=== PATIENT | male | born 1970 | race African-American/Black ===

== ENCOUNTER 2016-05-17 18:40 | Emergency (ER) | payer OTHER ==
--- NOTE | 2016-05-17 20:15 | DIAGNOSTIC IMAGING REPORT ---
PROCEDURE: CT HEAD WITHOUT CONTRAST INDICATION: NUMBNESS TECHNIQUE: Noncontrast axial images with sagittal and coronal reformations. COMPARISON: None. FINDINGS: Sulci, ventricular system, and brain parenchyma are normal. No evidence of acute intracranial process. Mild maxillary sinus disease. Mastoid are clear. IMPRESSION: 1. Negative non-enhanced head CT. 2. Findings discussed with Cathy Coe at 08:10 p.m.[facility] Time
--- NOTE | 2016-05-17 20:15 | DIAGNOSTIC IMAGING REPORT ---
PROCEDURE: CT HEAD WITHOUT CONTRAST INDICATION: NUMBNESS TECHNIQUE: Noncontrast axial images with sagittal and coronal reformations. COMPARISON: None. FINDINGS: Sulci, ventricular system, and brain parenchyma are normal. No evidence of acute intracranial process. Mild maxillary sinus disease. Mastoid are clear. IMPRESSION: 1. Negative non-enhanced head CT. 2. Findings discussed with Cathy Coe at 08:10 p.m.[facility] Time
--- NOTE | 2016-05-17 20:19 | DIAGNOSTIC IMAGING REPORT ---
PROCEDURE: XR CERVICAL SPINE 2 OR 3 VIEW INDICATION: NUMBNESS TECHNIQUE: Three views. COMPARISON: None. FINDINGS: Normal alignment without fracture. Straightening of the cervical spine. Moderate C4-5 and C5-6 degenerative changes. Odontoid, lateral masses of C1 and prevertebral soft tissues are normal. IMPRESSION: 1. Degenerative changes 2. Loss of lordosis suggestive of muscular spasm
--- NOTE | 2016-05-17 20:20 | DIAGNOSTIC IMAGING REPORT ---
PROCEDURE: XR CHEST 1 VIEW INDICATION: CHEST NUMBNESS, initial encounter TECHNIQUE: Portable AP view 08:11 p.m. COMPARISON: None. FINDINGS: Right apical scar Heart and mediastinum are normal. Thorax is normal. IMPRESSION: 1. No acute changes
--- NOTE | 2016-05-17 23:19 | ED NURSING NOTES ---
Clinical Report - Nurses [facility] [address] [place] [address] 05/17/2016 18:42 Patient: RAYSA GARCIA TRIAGE Triage time 1939. Acuity: LEVEL 3. Chief Complaint: NUMBNESS. Alert. No acute distress. --19:51 Kathy Holloway 19:46 05/17/16. BP: 136/97. HR: 70. RR: 16. O2 saturation: 98%. Temp: 98.0 F. Pain level now 08/22. --19:51 Kathy Holloway. Weight: 83.9 kg. Height/Length: 72 inches. BMI: 25.1. --19:45 Kathy Holloway. Medications Lipitor Oral. --19:49 Kathy Holloway Aspir-81 Oral. --19:49 Kathy Holloway. Allergies No Known Drug Allergy. --19:50 Kathy Holloway. History Arrived by private vehicle. Historian: patient. This started 4 days ago. ( Pt sts he has been having constant left sided numbness with tingling to left chest shoulder and down arm, also with some episodes of chest tightness on the left, pt sts in 2011 he had his entire left side do this, he was admitted and evaluated by neurology and noting was found, pt sts he is here tonight because "it has never lasted this long before"). He has had numbness. SOCIAL HX: Never smoker. --19:51 Kathy Holloway. PROBLEMS: Cervical Strain. Hypercholesterolemia. --19:49 Kathy Holloway. Interventions ID band on patient. To treatment room. --19:51 Kathy Holloway. PHYSICAL ASSESSMENT Ambulatory to room. Baseline functional status: usually alert, oriented x4 and cooperative. Verbal response: usually clear. Motor response: usually steady gait and moves all extremities equally GENERAL / NEURO / PSYCH: Awake. Oriented X 4. Alert. Appears in no acute distress. Speech normal. Mood/affect normal. Moves all extremities. No motor deficit. He has had numbness. Sensory deficit noted. Sensory deficit present. HEENT: No facial asymmetry noted. Pupils equal, round and reactive to light. EOM intact. Pharynx within normal limits. RESPIRATORY: Breath sounds within normal limits. Respirations not labored. CVS: Normal sinus rhythm noted. Capillary refill less than 2 seconds. SKIN: Skin is intact and warm. --19:52 Kathy Holloway. NURSING PROGRESS NOTES 20:03 05/17/2016 Site #1 started via IV in the right antecubital space with an 20g angiocath, with aseptic technique and good blood return; one attempt. Blood drawn: rainbow set. Labeled in the presence of the patient and sent to the lab. Saline lock flushed with 10 mL saline. --20:03 Kathy Holloway 20:21. EKG was performed by a tech. --20:21 McQuoid, Jaclyn, ER Tech1 The patient reports no complaints and he is calm and resting quietly. --22:00 Kathy Holloway 21:59 05/17/16. BP: 130/80. HR: 68. RR: 16. O2 saturation: 99%. Pain level now 4/10. --22:00 Kathy Holloway EKG time: (2310 PM). EKG was ordered, performed by a tech and shown to the ED physician. --23:09 Sobia Joshi 23:13 05/17/16. BP: 132/81. HR: 72. RR: 18. O2 saturation: 98%. Pain level now 2/10. --23:13 Kathy Holloway Patient informed about reason for wait. Patient waiting for consult. --23:13 Kathy Holloway. DISPOSITION / DISCHARGE 23:33 05/17/2016 Site #1 removed upon discharge. Pressure dressing applied. --23:33 Kathy Holloway Departure time: 2334. Condition at departure: unchanged and stable. No learning barriers present. Discharge instructions provided and reviewed with the patient. Patient verbalized understanding. Written instructions provided in [place]. The patient was discharged by the nurse practitioner. He was discharged home. He left the Emergency Department ambulatory and via private vehicle. Patient driving. --23:34 Kathy Holloway. Locked/Released at 05/17/2016 23:34 by Kathy Holloway,
--- NOTE | 2016-05-17 23:19 | ED CLINICAL REPORT ---
Clinical Report - Physicians/Mid Levels [facility] [address] [place] [address] 05/17/2016 18:42 Patient: RAYSA GARCIA Time Seen: 19:43; initial patient contact, initial documentation, patient care assumed. Arrived- By private vehicle. Historian- patient. HISTORY OF PRESENT ILLNESS Chief Complaint: PARESTHESIA. The patient has had localized numbness of the left arm (mild), (L side of chest and neck). No tingling, impaired speech or swallowing or visual disturbance. No difficulty walking. This started about 4 days ago and is still present. (none). No dizziness or altered mental status. Usually is alert and oriented X3 and has normal mobility. Similar symptoms previously: Once, milder. 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 Recent medical care: Not recently seen/assessed. REVIEW OF SYSTEMS No fever, chest pain, difficulty breathing, cough or abdominal pain. No diarrhea or vomiting. All systems otherwise negative, except as recorded above. PAST HISTORY See nurses notes. ( PROBLEMS: Cervical Strain. Hypercholesterolemia. --19:49 Kathy Holloway.). SOCIAL HISTORY Never smoker. No alcohol use or drug use. No recent travel. Is a local resident. FAMILY HISTORY Negative. ADDITIONAL NOTES The nursing notes have been reviewed with agreement regarding the chief complaint, HPI, ROS, PMH and patient medications and allergies. PHYSICAL EXAM Vital Signs: 05/17/2016 19:46 BP: 136/97. HR: 70. RR: 16. O2 saturation: 98%. Temp: 98.0 F. Have been reviewed as abnormal and appear to be correct. Hypertensive. Heart rate normal. Respiratory rate normal. Temperature normal. Oxygen saturation normal. Appearance: Alert. No acute distress. Head: Head atraumatic. Eyes: Pupils equal, round and reactive to light. ENT: Normal ENT inspection. Airway intact. Pharynx normal. Neck: Normal inspection. Neck supple. CVS: Normal heart rate and rhythm. Heart sounds normal. Pulses normal. Respiratory: No respiratory distress. Breath sounds normal. Abdomen: Soft and nontender. No organomegaly. Back: Normal inspection. Skin: Skin warm and dry. Normal skin color. No rash. Normal skin turgor. Extremities: Extremities exhibit normal ROM. No lower extremity edema. Neuro: Alert. Oriented X 3. Mood/affect normal. Speech normal. Cranial nerves normal (as tested). No cerebellar findings. No motor deficit. No sensory deficit. LABS, X-RAYS, AND EKG EKG: EKG time: (2020). No acute process. No acute ischemia. Normal EKG. Rate: 62. Normal EKG. The study has been interpreted contemporaneously by me (and reviewed by dr wells). The EKG appears to be a good tracing. Interpretation time: 2020. EKG #2: Normal. EKG time: (2310). No acute process. No acute ischemia. Normal EKG. Rate: 68. X-Rays: C-spine series. The study has been interpreted contemporaneously by me (and Dr sheldon). The EKG appears to be a good tracing. Interpretation time: 2311. C-Spine X-rays: (IMPRESSION: 1. Degenerative changes 2. Loss of lordosis suggestive of muscular spasm Electronically Final signed by:Amauri Barney MD 05/17/2016 8:19:16 PM). The X-rays were interpreted by the radiologist and contemporaneously by me. Chest X-ray: Normal Chest X-Ray. (IMPRESSION: 1. No acute changes Electronically Final signed by:Amauri Barney MD 05/17/2016 8:19:58 PM). The X-rays were interpreted by the radiologist and contemporaneously by me. CT Head: No acute disease. (IMPRESSION: 1. Negative non-enhanced head CT. 2. Findings discussed with Cathy Coe at 08:10 p.m., [place] Standard Time Electronically Final signed by:Amauri Barney MD 05/17/2016 8:15:14 PM). The study was interpreted by the radiologist. Interpretation time: 20:29. Laboratory Tests: CBC w Diff: (GHASSAN: 05/17/2016 20:00) ( [facility] 05/17/2016 20:17) Final results Test Result Flag Units (Reference) WHITE BLOOD COUNT 6.0 K/uL (4.5-11.5) RED BLOOD COUNT 4.88 M/uL (4.50-5.90) HEMOGLOBIN 14.2 gm/dL (13.5-17.5) HEMATOCRIT 43.6 % (41.0-53.0) MEAN CELL VOLUME 89 fL (80-100) MEAN CORPUSCULAR HGB 29 pg (26-34) MEAN CORPUSCULAR HGB CONC 33 g/dL (31-37) RED CELL DISTRIBUTION WIDTH 13.3 % (11.6-14.8) PLATELET COUNT 315 K/uL (150-400) NEUTROPHIL % 54.3 % (50-75) LYMPH % 32.7 % (25-40) MONO % 9.2 % (3-14) EOSINOPHIL % 3.0 % (0-4) BASOPHIL % 0.8 % (0-2) CPK: (GHASSAN: 05/17/2016 21:58) ( [facility] 05/17/2016 22:38) Final results Test Result Flag Units (Reference) CPK 515 H U/L (24-260) TROPONIN I 0.09 ng/mL (0.00-1.5) TROPONIN REFERENCE RANGE:<0.1 NEGATIVE0.1-1.5 INDETERMINANT>1.5 POSITIVE CK-MB 4.4 H ng/mL (0.5-3.2) %CKMB 0.9 % (0.0-4.0) BMP: (GHASSAN: 05/17/2016 20:00) ( [facility] 05/17/2016 20:50) Final results Test Result Flag Units (Reference) GLUCOSE 84 mg/dL (70-110) BUN 9 mg/dL (7-18) CREATININE 1.0 mg/dL (0.6-1.3) Estimated GFR >60 mL/min Estimated GFR- >60 mL/min Note: Persistent reduction over 3 months in eGFR<60 mL/min/1.73 m2 defines CKD. Patients with eGFR values>=60 mL/min/1.73 m2 may also have CKD if evidence ofpersistent proteinuria. Additional information may be foundat www.kidney.org. SODIUM 143 mmol/L (136-145) POTASSIUM 3.9 mmol/L (3.5-5.1) CHLORIDE 106 mmol/L (98-107) CARBON DIOXIDE 32 mmol/L (21-32) CALCIUM 9.5 mg/dL (8.5-10.1) CPK 332 H U/L (24-260) CK-MB 2.4 ng/mL (0.5-3.2) %CKMB 0.7 % (0.0-4.0) TROPONIN I 0.09 ng/mL (0.00-1.5) TROPONIN REFERENCE RANGE:<0.1 NEGATIVE0.1-1.5 INDETERMINANT>1.5 POSITIVE . PROGRESS AND PROCEDURES Course of Care: 21:36 05/17/16. pt updated with current results from labs, ct, xrays, and aware of 2nd set of enzymes due at 2200, pt resting quietly, nad, and pleasant 22:46 05/17/16. Dr. Sheldon aware of pt labs and report given Pt aware that enzymes went up, and admit for obs is recommended having director hydrogen storage engineering page cardiology at [facility]. 05/17/2016 23:13 BP: 132/81. HR: 72. RR: 18. O2 saturation: 98%. Vital Signs: have been reviewed as normal and appear to be correct. Consult obtained from cardiology. call returned [phone] [employer] Libr[employer] at [facility], if no new ekg changes, ok to dc. Case discussed. Phone consult only. Agree with treatment plan. Patient counseled in person regarding the patient's stable condition, test results, diagnosis and need for follow-up. 23:15. Differential Diagnosis: Other possible considerations: tia, cva, cervical stenosis, nerve impingement syndrome, mi, angina. Above considerations are based on history, physical exam, laboratory data, X-Ray data, EKG and other information. Differential diagnosis was discussed with patient. Disposition: Discharged home in good and unchanged condition (23:19). Condition: good and stable. CLINICAL IMPRESSION Atypical chest pain .12 lead EKG performed. INSTRUCTIONS Warnings: Further evaluation is necessary in order to conduct further tests. It is very important to follow up with a physician. GENERAL WARNINGS: Return or contact your physician immediately if your condition worsens or changes unexpectedly, if not improving as expected, or if other problems arise. Specifically return if problem worsens. Follow-up: Follow up with your doctor in about two days. Call for an appointment. Summary of care provided to patient. Screening today revealed the patient's blood pressure to be in the hypertensive range. Blood pressure screening was not performed during this visit because blood pressure screening was precluded by clinical urgency. Understanding of the discharge instructions verbalized by patient. (Electronically signed by Cathy Coe A.R.N.P. 05/17/2016 23:36)
--- NOTE | 2016-05-17 23:19 | ED ORDER SUMMARY ---
..... Patient: RAYSA GARCIA OrderSheet [facility] VisitID: [id number] [address] [place] [address] 45y, M Registration Date/Time: 05/17/2016 ORDER SHEET Weight: 83.9 kg Allergies: No Known Drug Allergy GENERAL ORDERS: CBC w Diff Urgent (19:53 05/17/2016 EBonham per protocol) (Ack 19:59 NHouse ER Tech1) (20:42 NHouse ER Tech1) CMP Urgent (19:53 05/17/2016 EBonham per protocol) (19:54 HBivens A.R.N.P.) (Cancelled: Other19:54 HBivens A.R.N.P.) EKG - ER Stat (19:53 05/17/2016 EBonham per protocol) (Ack 19:54 AMcQuoid ER Tech1) (20:20 AMcQuoid ER Tech1) Chest 1V Urgent (19:55 05/17/2016 HBivens A.R.N.P.) (Ack 19:59 NHouse ER Tech1) (20:15 MCampbell) Cervical Spine 2 or 3V Urgent (19:55 05/17/2016 HBivens A.R.N.P.) (Ack 19:59 NHouse ER Tech1) (20:15 MCampbell) CT Head wo Cont Urgent (19:55 05/17/2016 HBivens A.R.N.P.) (Ack 19:59 NHouse ER Tech1) (20:15 MCampbell) BMP Urgent (19:55 05/17/2016 HBivens A.R.N.P.) (Ack 19:59 NHouse ER Tech1) (20:42 NHouse ER Tech1) CPK Urgent (19:55 05/17/2016 HBivens A.R.N.P.) (Ack 19:59 NHouse ER Tech1) (20:42 NHouse ER Tech1) Troponin-I Urgent (19:55 05/17/2016 HBivens A.R.N.P.) (Ack 19:59 NHouse ER Tech1) (20:42 NHouse ER Tech1) CPK Urgent (21:10 05/17/2016 HBivens A.R.N.P.) (Ack 21:22 NHouse ER Tech1) (22:20 NHouse ER Tech1) Troponin-I Urgent (21:10 05/17/2016 HBivens A.R.N.P.) (Ack 21:22 NHouse ER Tech1) (22:20 NHouse ER Tech1) EKG - ER Stat (22:46 05/17/2016 HBivens A.R.N.P.) (23:08 [facility] MEDICATION ORDERS: IV FLUIDS: IV Saline Lock (19:53 05/17/2016 Ami per protocol) (Cancelled: Duplicate Order20:03 Ami) IV Saline Lock (19:55 05/17/2016 HBivens A.R.N.P.) (20:03 Ami) ORDER SHEET NOTES: [Electronically signed by Kathy Holloway (23:34 05/17/2016)] [Electronically signed by Cathy Coe A.R.N.P. (23:36 05/17/2016)] [Electronically locked/signed by Kathy Holloway (23:34 05/17/2016)]
--- NOTE | 2016-05-17 23:19 | ED ORDER SUMMARY ---
..... Patient: RAYSA GARCIA OrderSheet [facility] VisitID: [id number] [address] [place] [address] 45y, M Registration Date/Time: 05/17/2016 ORDER SHEET Weight: 83.9 kg Allergies: No Known Drug Allergy GENERAL ORDERS: CBC w Diff Urgent (19:53 05/17/2016 EBonham per protocol) (Ack 19:59 NHouse ER Tech1) (20:42 NHouse ER Tech1) CMP Urgent (19:53 05/17/2016 EBonham per protocol) (19:54 HBivens A.R.N.P.) (Cancelled: Other19:54 HBivens A.R.N.P.) EKG - ER Stat (19:53 05/17/2016 EBonham per protocol) (Ack 19:54 AMcQuoid ER Tech1) (20:20 AMcQuoid ER Tech1) Chest 1V Urgent (19:55 05/17/2016 HBivens A.R.N.P.) (Ack 19:59 NHouse ER Tech1) (20:15 MCampbell) Cervical Spine 2 or 3V Urgent (19:55 05/17/2016 HBivens A.R.N.P.) (Ack 19:59 NHouse ER Tech1) (20:15 MCampbell) CT Head wo Cont Urgent (19:55 05/17/2016 HBivens A.R.N.P.) (Ack 19:59 NHouse ER Tech1) (20:15 MCampbell) BMP Urgent (19:55 05/17/2016 HBivens A.R.N.P.) (Ack 19:59 NHouse ER Tech1) (20:42 NHouse ER Tech1) CPK Urgent (19:55 05/17/2016 HBivens A.R.N.P.) (Ack 19:59 NHouse ER Tech1) (20:42 NHouse ER Tech1) Troponin-I Urgent (19:55 05/17/2016 HBivens A.R.N.P.) (Ack 19:59 NHouse ER Tech1) (20:42 NHouse ER Tech1) CPK Urgent (21:10 05/17/2016 HBivens A.R.N.P.) (Ack 21:22 NHouse ER Tech1) (22:20 NHouse ER Tech1) Troponin-I Urgent (21:10 05/17/2016 HBivens A.R.N.P.) (Ack 21:22 NHouse ER Tech1) (22:20 NHouse ER Tech1) EKG - ER Stat (22:46 05/17/2016 HBivens A.R.N.P.) (23:08 [facility] MEDICATION ORDERS: IV FLUIDS: IV Saline Lock (19:53 05/17/2016 Ami per protocol) (Cancelled: Duplicate Order20:03 Ami) IV Saline Lock (19:55 05/17/2016 HBivens A.R.N.P.) (20:03 Ami) ORDER SHEET NOTES: [Electronically signed by Kathy Holloway (23:34 05/17/2016)] [Electronically signed by Cathy Coe A.R.N.P. (23:36 05/17/2016)] [Electronically locked/signed by Kathy Holloway (23:34 05/17/2016)]
--- NOTE | 2016-05-17 23:19 | ED CLINICAL REPORT ---
Clinical Report - Physicians/Mid Levels [facility] [address] [place] [address] 05/17/2016 18:42 Patient: RAYSA GARCIA Time Seen: 19:43; initial patient contact, initial documentation, patient care assumed. Arrived- By private vehicle. Historian- patient. HISTORY OF PRESENT ILLNESS Chief Complaint: PARESTHESIA. The patient has had localized numbness of the left arm (mild), (L side of chest and neck). No tingling, impaired speech or swallowing or visual disturbance. No difficulty walking. This started about 4 days ago and is still present. (none). No dizziness or altered mental status. Usually is alert and oriented X3 and has normal mobility. Similar symptoms previously: Once, milder. 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 Recent medical care: Not recently seen/assessed. REVIEW OF SYSTEMS No fever, chest pain, difficulty breathing, cough or abdominal pain. No diarrhea or vomiting. All systems otherwise negative, except as recorded above. PAST HISTORY See nurses notes. ( PROBLEMS: Cervical Strain. Hypercholesterolemia. --19:49 Kathy Holloway.). SOCIAL HISTORY Never smoker. No alcohol use or drug use. No recent travel. Is a local resident. FAMILY HISTORY Negative. ADDITIONAL NOTES The nursing notes have been reviewed with agreement regarding the chief complaint, HPI, ROS, PMH and patient medications and allergies. PHYSICAL EXAM Vital Signs: 05/17/2016 19:46 BP: 136/97. HR: 70. RR: 16. O2 saturation: 98%. Temp: 98.0 F. Have been reviewed as abnormal and appear to be correct. Hypertensive. Heart rate normal. Respiratory rate normal. Temperature normal. Oxygen saturation normal. Appearance: Alert. No acute distress. Head: Head atraumatic. Eyes: Pupils equal, round and reactive to light. ENT: Normal ENT inspection. Airway intact. Pharynx normal. Neck: Normal inspection. Neck supple. CVS: Normal heart rate and rhythm. Heart sounds normal. Pulses normal. Respiratory: No respiratory distress. Breath sounds normal. Abdomen: Soft and nontender. No organomegaly. Back: Normal inspection. Skin: Skin warm and dry. Normal skin color. No rash. Normal skin turgor. Extremities: Extremities exhibit normal ROM. No lower extremity edema. Neuro: Alert. Oriented X 3. Mood/affect normal. Speech normal. Cranial nerves normal (as tested). No cerebellar findings. No motor deficit. No sensory deficit. LABS, X-RAYS, AND EKG EKG: EKG time: (2020). No acute process. No acute ischemia. Normal EKG. Rate: 62. Normal EKG. The study has been interpreted contemporaneously by me (and reviewed by dr wells). The EKG appears to be a good tracing. Interpretation time: 2020. EKG #2: Normal. EKG time: (2310). No acute process. No acute ischemia. Normal EKG. Rate: 68. X-Rays: C-spine series. The study has been interpreted contemporaneously by me (and Dr sheldon). The EKG appears to be a good tracing. Interpretation time: 2311. C-Spine X-rays: (IMPRESSION: 1. Degenerative changes 2. Loss of lordosis suggestive of muscular spasm Electronically Final signed by:Amauri Barney MD 05/17/2016 8:19:16 PM). The X-rays were interpreted by the radiologist and contemporaneously by me. Chest X-ray: Normal Chest X-Ray. (IMPRESSION: 1. No acute changes Electronically Final signed by:Amauri Barney MD 05/17/2016 8:19:58 PM). The X-rays were interpreted by the radiologist and contemporaneously by me. CT Head: No acute disease. (IMPRESSION: 1. Negative non-enhanced head CT. 2. Findings discussed with Cathy Coe at 08:10 p.m., [place] Standard Time Electronically Final signed by:Amauri Barney MD 05/17/2016 8:15:14 PM). The study was interpreted by the radiologist. Interpretation time: 20:29. Laboratory Tests: CBC w Diff: (GHASSAN: 05/17/2016 20:00) ( [facility] [place] 05/17/2016 20:17) Final results Test Result Flag Units (Reference) WHITE BLOOD COUNT 6.0 K/uL (4.5-11.5) RED BLOOD COUNT 4.88 M/uL (4.50-5.90) HEMOGLOBIN 14.2 gm/dL (13.5-17.5) HEMATOCRIT 43.6 % (41.0-53.0) MEAN CELL VOLUME 89 fL (80-100) MEAN CORPUSCULAR HGB 29 pg (26-34) MEAN CORPUSCULAR HGB CONC 33 g/dL (31-37) RED CELL DISTRIBUTION WIDTH 13.3 % (11.6-14.8) PLATELET COUNT 315 K/uL (150-400) NEUTROPHIL % 54.3 % (50-75) LYMPH % 32.7 % (25-40) MONO % 9.2 % (3-14) EOSINOPHIL % 3.0 % (0-4) BASOPHIL % 0.8 % (0-2) CPK: (GHASSAN: 05/17/2016 21:58) ( [facility] [place] 05/17/2016 22:38) Final results Test Result Flag Units (Reference) CPK 515 H U/L (24-260) TROPONIN I 0.09 ng/mL (0.00-1.5) TROPONIN REFERENCE RANGE:<0.1 NEGATIVE0.1-1.5 INDETERMINANT>1.5 POSITIVE CK-MB 4.4 H ng/mL (0.5-3.2) %CKMB 0.9 % (0.0-4.0) BMP: (GHASSAN: 05/17/2016 20:00) ( [facility] 05/17/2016 20:50) Final results Test Result Flag Units (Reference) GLUCOSE 84 mg/dL (70-110) BUN 9 mg/dL (7-18) CREATININE 1.0 mg/dL (0.6-1.3) Estimated GFR >60 mL/min Estimated GFR- >60 mL/min Note: Persistent reduction over 3 months in eGFR<60 mL/min/1.73 m2 defines CKD. Patients with eGFR values>=60 mL/min/1.73 m2 may also have CKD if evidence ofpersistent proteinuria. Additional information may be foundat www.kidney.org. SODIUM 143 mmol/L (136-145) POTASSIUM 3.9 mmol/L (3.5-5.1) CHLORIDE 106 mmol/L (98-107) CARBON DIOXIDE 32 mmol/L (21-32) CALCIUM 9.5 mg/dL (8.5-10.1) CPK 332 H U/L (24-260) CK-MB 2.4 ng/mL (0.5-3.2) %CKMB 0.7 % (0.0-4.0) TROPONIN I 0.09 ng/mL (0.00-1.5) TROPONIN REFERENCE RANGE:<0.1 NEGATIVE0.1-1.5 INDETERMINANT>1.5 POSITIVE . PROGRESS AND PROCEDURES Course of Care: 21:36 05/17/16. pt updated with current results from labs, ct, xrays, and aware of 2nd set of enzymes due at 2200, pt resting quietly, nad, and pleasant 22:46 05/17/16. Dr. Sheldon aware of pt labs and report given Pt aware that enzymes went up, and admit for obs is recommended having rn lactation consultant page cardiology at [facility]. 05/17/2016 23:13 BP: 132/81. HR: 72. RR: 18. O2 saturation: 98%. Vital Signs: have been reviewed as normal and appear to be correct. Consult obtained from cardiology. call returned [phone] Dr Jett Movement Assembler at [facility], if no new ekg changes, ok to dc. Case discussed. Phone consult only. Agree with treatment plan. Patient counseled in person regarding the patient's stable condition, test results, diagnosis and need for follow-up. 23:15. Differential Diagnosis: Other possible considerations: tia, cva, cervical stenosis, nerve impingement syndrome, mi, angina. Above considerations are based on history, physical exam, laboratory data, X-Ray data, EKG and other information. Differential diagnosis was discussed with patient. Disposition: Discharged home in good and unchanged condition (23:19). Condition: good and stable. CLINICAL IMPRESSION Atypical chest pain .12 lead EKG performed. INSTRUCTIONS Warnings: Further evaluation is necessary in order to conduct further tests. It is very important to follow up with a physician. GENERAL WARNINGS: Return or contact your physician immediately if your condition worsens or changes unexpectedly, if not improving as expected, or if other problems arise. Specifically return if problem worsens. Follow-up: Follow up with your doctor in about two days. Call for an appointment. Summary of care provided to patient. Screening today revealed the patient's blood pressure to be in the hypertensive range. Blood pressure screening was not performed during this visit because blood pressure screening was precluded by clinical urgency. Understanding of the discharge instructions verbalized by patient. (Electronically signed by Cathy Coe A.R.N.P. 05/17/2016 23:36)
--- NOTE | 2016-05-17 23:36 | ED DISCHARGE INSTRUCTIONS ---
Patient: RAYSA GARCIA General Instructions [facility] VisitID: [id number] [place] [address] 45y, M Registration Date/Time: 05/17/2016 Atypical chest pain .12 lead EKG performed. INSTRUCTIONS Warnings: Further evaluation is necessary in order to conduct further tests. It is very important to follow up with a physician. GENERAL WARNINGS: Return or contact your physician immediately if your condition worsens or changes unexpectedly, if not improving as expected, or if other problems arise. Specifically return if problem worsens. Follow-up: Follow up with your doctor in about two days. Call for an appointment. Summary of care provided to patient. Screening today revealed the patient's blood pressure to be in the hypertensive range. Blood pressure screening was not performed during this visit because blood pressure screening was precluded by clinical urgency. Understanding of the discharge instructions verbalized by patient. ADDITIONAL INFORMATION Chest Pain, Noncardiac Based on your visit today, the exact cause of your chest pain is not certain. Your condition does not seem serious and your pain does not appear to be coming from your heart. However, sometimes the signs of a serious problem take more time to appear. Therefore, please watch for the warning signs listed below. Home Care: Rest today and avoid strenuous activity. Take any prescribed medicine as directed. Follow Up with your doctor or this facility as instructed or if you do not start to feel better within 24 hours. Get Prompt Medical Attention if any of the following occur: A change in the type of pain: if it feels different, becomes more severe, lasts longer, or begins to spread into your shoulder, arm, neck, jaw or back Shortness of breath or increased pain with breathing Cough with dark colored sputum (phlegm) or blood Weakness, dizziness, or fainting Fever of 100.4F (38C) or higher, or as directed by your healthcare provider Swelling, pain or redness in one leg You have been given the following additional information: Chest Pain, Noncardiac (Electronically signed by Cathy Coe A.R.N.P. 05/17/2016 23:36)
--- NOTE | 2016-05-17 23:36 | ED MED RECONCILIATION SUMMARY ---
Patient: RAYSA GARCIA Medication Reconciliation Report [facility] VisitID: [id number] [address] [place] [address] 45y, M Registration Date/Time: 05/17/2016 Weight: 83.9 kg Height/Length: 72 in. BMI: 25.1 ALLERGIES: No Known Drug Allergy The patient's Home Medications are listed below: THE FOLLOWING MEDICATIONS NEED TO BE RECONCILED: Aspir-81 Oral Lipitor Oral The source(s) of the original Home Medication information: Not obtained. The following Medications were given to the patient in the Emergency Department: None. The following Medications were prescribed to the patient: None.
--- NOTE | 2016-05-17 23:36 | ED MAR SUMMARY ---
..... Medication Administration Record [facility] [address] [place], [place] [id number] Patient: RAYSA GARCIA Visit ID: [id number] 45y, M Weight: 83.9 kg Height/Length: 72 in BMI: 25.1 ALLERGIES: No Known Drug Allergy
--- NOTE | 2016-05-17 23:36 | ED MAR SUMMARY ---
..... Medication Administration Record [facility] [address] [place], [place] [id number] Patient: RAYSA GARCIA Visit ID: [id number] 45y, M Weight: 83.9 kg Height/Length: 72 in BMI: 25.1 ALLERGIES: No Known Drug Allergy
--- NOTE | 2016-05-17 23:36 | ED DISCHARGE INSTRUCTIONS ---
Patient: RAYSA GARCIA General Instructions [facility] VisitID: [id number] [place] [address] 45y, M Registration Date/Time: 05/17/2016 Atypical chest pain .12 lead EKG performed. INSTRUCTIONS Warnings: Further evaluation is necessary in order to conduct further tests. It is very important to follow up with a physician. GENERAL WARNINGS: Return or contact your physician immediately if your condition worsens or changes unexpectedly, if not improving as expected, or if other problems arise. Specifically return if problem worsens. Follow-up: Follow up with your doctor in about two days. Call for an appointment. Summary of care provided to patient. Screening today revealed the patient's blood pressure to be in the hypertensive range. Blood pressure screening was not performed during this visit because blood pressure screening was precluded by clinical urgency. Understanding of the discharge instructions verbalized by patient. ADDITIONAL INFORMATION Chest Pain, Noncardiac Based on your visit today, the exact cause of your chest pain is not certain. Your condition does not seem serious and your pain does not appear to be coming from your heart. However, sometimes the signs of a serious problem take more time to appear. Therefore, please watch for the warning signs listed below. Home Care: Rest today and avoid strenuous activity. Take any prescribed medicine as directed. Follow Up with your doctor or this facility as instructed or if you do not start to feel better within 24 hours. Get Prompt Medical Attention if any of the following occur: A change in the type of pain: if it feels different, becomes more severe, lasts longer, or begins to spread into your shoulder, arm, neck, jaw or back Shortness of breath or increased pain with breathing Cough with dark colored sputum (phlegm) or blood Weakness, dizziness, or fainting Fever of 100.4F (38C) or higher, or as directed by your healthcare provider Swelling, pain or redness in one leg You have been given the following additional information: Chest Pain, Noncardiac (Electronically signed by Cathy Coe A.R.N.P. 05/17/2016 23:36)
--- NOTE | 2016-05-17 23:36 | ED MED RECONCILIATION SUMMARY ---
Patient: RAYSA GARCIA Medication Reconciliation Report [facility] VisitID: [id number] [address] [place] [address] 45y, M Registration Date/Time: 05/17/2016 Weight: 83.9 kg Height/Length: 72 in. BMI: 25.1 ALLERGIES: No Known Drug Allergy The patient's Home Medications are listed below: THE FOLLOWING MEDICATIONS NEED TO BE RECONCILED: Aspir-81 Oral Lipitor Oral The source(s) of the original Home Medication information: Not obtained. The following Medications were given to the patient in the Emergency Department: None. The following Medications were prescribed to the patient: None.
== END 2016-05-17 23:33 | disposition home or self-care (01) ==
LOC: ED SRH 18:40
DX: R07.89 Other chest pain (principal); E78.00 Pure hypercholesterolemia, unspecified
CPT/HCPCS: 90047; 90616; 90617; 92610; 95059